=== PATIENT | female | born 1975 | race Caucasian/White ===

== ENCOUNTER 2019-11-04 12:49 | Emergency (ER) | payer OTHER ==
[~2019-11-04] VITALS: Ht 149.9 cm; Wt 59.0 kg
[2019-11-04 13:14] VITALS: Ht 149.9 cm; Wt 59.0 kg
[2019-11-04 16:24] VITALS: BP 112/63
== END 2019-11-04 16:24 | disposition home or self-care (01) ==
LOC: ED 12:49
DX: S53.104A Unspecified dislocation of right ulnohumeral joint, initial encounter (principal); S52.121A Displaced fracture of head of right radius, initial encounter for closed fracture; W01.0XXA Fall on same level from slipping, tripping and stumbling without subsequent striking against object, initial encounter; Y93.89 Activity, other specified; Y92.89 Other specified places as the place of occurrence of the external cause; Y99.8 Other external cause status
CPT/HCPCS: J3010; Q0092